=== PATIENT | female | born 1960 | race Caucasian/White ===

== ENCOUNTER → 2022-01-18 | Outpatient (CLI) | payer BC | LOC: M PLAIMG 08:54 | PROVIDERS: ATTEND Physician Assistant | DX: R31.0 Gross hematuria (principal) ==

== ENCOUNTER → 2022-04-28 | Outpatient (REF) | payer BC ==
[2022-04-28 12:31] LABS: APPEARANCE, URINE MANUAL CLEAR (CLEAR); BILIRUBIN, URINE MANUAL NEGATIVE (NEGATIVE); BLOOD URINE MANUAL NEGATIVE (NEGATIVE); COLOR, URINE MANUAL YELLOW (YELLOW); GLUCOSE, URINE (UA) MANUAL NEGATIVE (NEGATIVE); KETONE, URINE MANUAL NEGATIVE (NEGATIVE); LEUKOCYTE ESTERASE, URINE MAN NEGATIVE (NEGATIVE); NITRITE, URINE MANUAL NEGATIVE (NEGATIVE); PROTEIN, URINE MANUAL NEGATIVE (NEGATIVE); SPECIFIC GRAVITY,URINE MANUAL 1.015 (1.002-1.035); UROBILINOGEN, URINE MANUAL NORMAL (NORMAL)
== END ==
LOC: M SMT 09:59
PROVIDERS: ATTEND Physician Assistant
DX: R30.0 Dysuria (principal); R31.0 Gross hematuria

== ENCOUNTER 2022-05-28 07:22 | Day surgery (SDC) | payer BC ==
[~2022-05-28] VITALS: Ht 152.4 cm; Wt 100.6 kg
[~2022-05-28 07:22] MED LIST: DICY10CA13 PO; ESOM40CA35 PO; FAMO40TA3 PO; GABA-282 PO; HYDR25SU61; LEVO112T2 PO; MULTTAB61 PO; OXYB10TA23 PO; PHEN1TAB73 PO; TYLE650T38 PO; VITA100093 PO; VITA250T4 PO; ceFAZolin SOD 2 GM in IV 1 EA IV ONE
[2022-05-28] MEDS ORDERED: ISOVUE-300 61% 100ML VIAL As Ordered ONE (07:25)
[2022-05-28] MEDS ORDERED: LIDOCAINE 1% SDV 5ML VIAL SC PRN (07:30)
[2022-05-28] MEDS ORDERED: LR 1,000 ML IV SCH ×2 (07:30→14:20)
[2022-05-28] MEDS ORDERED: fentaNYL 100 MCG/2 ML INJECTION As Ordered ONE (12:49)
[2022-05-28] MEDS ORDERED: ACETAMINOPHEN 1000MG 100ML IV BAG As Ordered ONE (12:49)
[2022-05-28] MEDS ORDERED: MIDAZOLAM INJ 2MG/2ML VIAL As Ordered ONE (12:49)
[2022-05-28] MEDS ORDERED: KETOROLAC 60MG 2ML VIAL As Ordered ONE (12:51)
[2022-05-28] MEDS ORDERED: LIDOCAINE 2% 100MG/5ML SDV (FOR ANES.) As Ordered ONE (12:51)
[2022-05-28] MEDS ORDERED: propofoL 200 MG/20 ML VIAL As Ordered ONE (12:51)
[2022-05-28] MEDS ORDERED: ONDANSETRON 4MG 2ML VIAL As Ordered ONE (12:51)
[2022-05-28] MEDS ORDERED: fentaNYL 100 MCG/2 ML INJECTION IV PRN (14:20)
[2022-05-28] MEDS ORDERED: ONDANSETRON 4MG 2ML VIAL IV PRN (14:20)
[2022-05-28] MEDS: oxyCODONE 5MG TAB PO PRN ×2 (14:34→15:20)
[2022-05-28] MEDS ORDERED: PERCOCET PO (14:53)
[2022-05-28] MEDS ORDERED: PERCOCET 5MG/325MG TAB PO PRN (14:55)
[2022-05-28 16:05] VITALS: BP 154/90
[2022-06-03 12:08] LABS: Ca Ox Monohydrate 30 % (.); Size 5x3 mm (.)
== END 2022-05-28 16:10 | disposition home or self-care (01) ==
LOC: M SDC 07:22
PROVIDERS: ATTEND Urology
DX: N20.0 Calculus of kidney (principal); R31.0 Gross hematuria; E03.9 Hypothyroidism, unspecified; K58.9 Irritable bowel syndrome, unspecified; K22.70 Barrett's esophagus without dysplasia; M19.90 Unspecified osteoarthritis, unspecified site; Z87.891 Personal history of nicotine dependence; Z88.2 Allergy status to sulfonamides; Z88.0 Allergy status to penicillin; Z91.041 Radiographic dye allergy status; Z79.899 Other long term (current) drug therapy; Z79.890 Hormone replacement therapy
CPT/HCPCS: 52356; 74420; 82365; C1769; C1894; C2617; J0131; J1100; J1885; J2250; J2405; J3010

== ENCOUNTER → 2022-06-03 | Outpatient (REF) | payer BC ==
[~2022-06-03] MED LIST changes: +PERCOCET PO; -ceFAZolin SOD 2 GM in IV 1 EA IV ONE
[2022-06-03 14:03] LABS: AMORPHOUS SEDIMENT SMALL (NEGATIVE); APPEARANCE, URINE HAZY (CLEAR); BACTERIA, URINE AUTO NEGATIVE (NEGATIVE); BILIRUBIN, URINE AUTO NEGATIVE (NEGATIVE); BLOOD, URINE BLOOD 3+ (NEGATIVE); COLOR, URINE AMBER (YELLOW); GLUCOSE, URINE (UA) AUTO NEGATIVE (NEGATIVE); KETONE, URINE AUTO NEGATIVE (NEGATIVE); LEUKOCYTE ESTERASE, URINE AUTO 2+ (NEGATIVE); MUCUS, URINE SMALL (NEGATIVE); NITRITE, URINE AUTO NEGATIVE (NEGATIVE); PROTEIN, URINE AUTO 1+ mg/dL (NEGATIVE); RBC, URINE AUTO TNTC /HPF (0-3); SPECIFIC GRAVITY URINE AUTO 1.012 (1.002-1.035); SQUAMOUS EPITHELIAL CELL UR AU 2 /HPF (0-6); UROBILINOGEN, URINE AUTO 0.2 mg/dL (0.0-2.0); WBC, URINE AUTO 102 /HPF (0-3)
== END ==
LOC: M SMT 13:10
PROVIDERS: ATTEND Physician Assistant
DX: Z01.818 Encounter for other preprocedural examination (principal)

== ENCOUNTER 2022-06-10 09:24 | Day surgery (SDC) | payer BC ==
[~2022-06-10] VITALS: Ht 152.4 cm; Wt 100.2 kg
[2022-06-10] MEDS ORDERED: ceFAZolin SOD 2 GM in IV 1 EA IV ONE (10:30)
[2022-06-10] MEDS ORDERED: LR 1,000 ML IV SCH (10:35)
[2022-06-10] MEDS ORDERED: LIDOCAINE 2% 100MG/5ML SDV (FOR ANES.) As Ordered ONE (10:40)
[2022-06-10] MEDS ORDERED: propofoL 200 MG/20 ML VIAL As Ordered ONE ×2 (10:40→11:47)
[2022-06-10] MEDS ORDERED: ACETAMINOPHEN 1000MG 100ML IV BAG As Ordered ONE (11:16)
[2022-06-10] MEDS ORDERED: ONDANSETRON 4MG 2ML VIAL As Ordered ONE (11:47)
[2022-06-10] MEDS ORDERED: FLOM0.4C39 PO (11:50)
[2022-06-10] MEDS ORDERED: PERCOCET PO (11:50)
[2022-06-10] MEDS ORDERED: PERCOCET 5MG/325MG TAB PO PRN (12:25)
[2022-06-10 13:05] VITALS: BP 133/83
[2022-06-11] MEDS ORDERED: UNRESOLVED CLARIFICATION ENTRY XX SCH (00:01)
== END 2022-06-10 13:20 | disposition home or self-care (01) ==
LOC: M SDC 09:24
PROVIDERS: ATTEND Urology
DX: N20.0 Calculus of kidney (principal); E03.9 Hypothyroidism, unspecified; K58.9 Irritable bowel syndrome, unspecified; K22.70 Barrett's esophagus without dysplasia; M19.90 Unspecified osteoarthritis, unspecified site; M54.9 Dorsalgia, unspecified; R35.0 Frequency of micturition; Z87.891 Personal history of nicotine dependence; Z91.041 Radiographic dye allergy status; Z88.0 Allergy status to penicillin; Z88.2 Allergy status to sulfonamides; Z79.899 Other long term (current) drug therapy; Z79.890 Hormone replacement therapy; Z79.891 Long term (current) use of opiate analgesic
CPT/HCPCS: 50590; 52310; 74018; J0131; J0690; J2405

== ENCOUNTER → 2022-07-02 | Outpatient (REF) | payer BC ==
[~2022-07-02] MED LIST changes: +FLOM0.4C39 PO
== END ==
LOC: M SMT 17:14
PROVIDERS: ATTEND Physician Assistant
DX: Z48.816 Encounter for surgical aftercare following surgery on the genitourinary system (principal)

== ENCOUNTER → 2022-07-14 | Outpatient (CLI) | payer BC | LOC: M LAB 09:59 | PROVIDERS: ATTEND Physician Assistant | DX: Z48.816 Encounter for surgical aftercare following surgery on the genitourinary system (principal); Z79.899 Other long term (current) drug therapy ==

== ENCOUNTER → 2022-09-03 | Outpatient (REF) | payer BC ==
[2022-09-03 17:33] LABS: CALCIUM,RANDOM URINE 5.8 MG/DL
[2022-09-03 17:47] LABS: CREATININE,RANDOM URINE 247.6 MG/DL
== END ==
LOC: M LAB REF 16:52
PROVIDERS: ATTEND Internal Medicine Nephrology
DX: E21.0 Primary hyperparathyroidism (principal)